=== PATIENT | male | born 1950 | race African-American/Black ===

== ENCOUNTER 2018-06-12 14:37 | Outpatient (CLI) | payer MEDICARE | END 2018-06-12 14:38 | disposition home or self-care (01) | LOC: BICMRI 14:37 | PROVIDERS: ATTEND Family Medicine | DX: M54.12 Radiculopathy, cervical region (principal); S30.851A Superficial foreign body of abdominal wall, initial encounter | CPT/HCPCS: 70210; 71046 ==

== ENCOUNTER 2018-11-29 09:38 | Outpatient (CLI) | payer MEDICARE ==
--- NOTE | 2018-11-29 11:58 | ULT ---
ABDOMEN ULTRASOUND: HISTORY: Upper abdominal pain for three weeks. FINDINGS: The visualized portions of the aorta and IVC are unremarkable. The pancreas is not well seen. The liver measures 13.9 cm in length with mildly increased hepatic echotexture. The spleen measures 8.8 cm in length. The gallbladder is normal. No pericholecystic fluid or cholelithiasis. Negative sonographic Pinon sign. The common bile duct measures 3 mm. The right kidney measures 10.8 x 4 x 4.6 cm, and the left kidney measures 11.5 x 5.9 x 5.5 cm, with a small amount of bilateral hydronephrosis. The urinary bladder is only mildly distended. IMPRESSION: Mild bilateral hydronephrosis, which may be physiologic, from bladder outlet obstruction. A follow-up CT examination may be beneficial, if clinically warranted, to evaluate for a distal obstr uctive process. POS: [facility]
== END 2018-11-29 09:39 | disposition home or self-care (01) ==
LOC: BICULT 09:38
PROVIDERS: ATTEND Internal Medicine Gastroenterology
DX: R10.10 Upper abdominal pain, unspecified (principal); N13.30 Unspecified hydronephrosis
CPT/HCPCS: 76700

== ENCOUNTER 2018-12-08 08:51 | Outpatient (CLI) | payer MEDICARE ==
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
[2018-12-08] MEDS ORDERED: Iopamidol 370 76% 100 ML VIAL ONE (12:43)
== END 2018-12-08 08:52 | disposition home or self-care (01) ==
LOC: CT 08:51 → MERGE 09:30
PROVIDERS: ATTEND Internal Medicine Gastroenterology
DX: N13.30 Unspecified hydronephrosis (principal); I70.8 Atherosclerosis of other arteries
CPT/HCPCS: 74177; 82565; Q9967

== ENCOUNTER 2018-12-27 08:56 | Outpatient (CLI) | payer MEDICARE ==
[2018-12-27] MEDS ORDERED: Gadobenate Dimeglumine 529 MG/1 ML (20ML VIAL) ONE (09:37)
[2018-12-27 10:06] LABS: Estimated GFR-MDRD - POC Greater than 90
--- NOTE | 2018-12-27 11:29 | MRI ---
[facility] lumbar spine noncontrast: DATE: 12/27/2018 HISTORY: Left leg numbness. Difficulty walking. Symptoms x6-8 months. COMPARISON: 06/01/2005 FINDINGS: Slightly heterogeneous T1 marrow signal intensity lumbar vertebra, similar to previous examination. V ertebral body height is maintained. No fracture. No significant STIR hyperintensity to suggest verteb ral body edema or ligamentous injury. T2 hyperintensity in the left right renal pelvis likely representing bilateral parapelvic cysts Symmetric signal intensity of the paraspinal muscles Conus medullaris terminates at the mid T12 level T12-L1:No significant central canal stenosis or neural foraminal narrowing L1-2:No significant central canal stenosis or neural foraminal narrowing L2-3:Mild loss of disc space height. Generalized disc bulge with a central/right subarticular minimal protrusion. There is T2 and STIR hyperintensity along the posterior margin of the disc, suggesting a small annular fissure. Mild central canal stenosis. Mild narrowing of the right subarticular zone wi thout obscuration of the traversing right L3 nerve root. Mild ligamentum flavum thickening and facet hypertrophy. Mild to moderate bilateral foraminal narrowing. L3-4:Mild loss of disc space height. No significant central canal stenosis. Moderate right and modera te to severe left foraminal narrowing. L4-5:Mild loss of disc space height. Broad-based disc bulge, ligament flavum thickening result in mil d central canal stenosis. Narrowing of both subarticular zones with mass effect, without obscuration of bilateral traversing L5 nerve roots. There is a T2 and STIR hyperintensity associated with the francesca tral aspect of the disc protrusion, compatible with annular fissure. Moderate to severe right and mod erate left foraminal narrowing L5-S1:Adequate hydration. Minimal central disc protrusion. No significant central canal stenosis. Mil d to moderate right and left foraminal narrowing. IMPRESSION: 1. Annular fissure at L2-L3 and L4-L5. 2. Multilevel significant neural foraminal narrowing as detailed above.
--- NOTE | 2018-12-27 12:40 | MRI ---
MRI CERVICAL SPINE WITH AND WITHOUT CONTRAST: FINDINGS: Spinal canal is diffusely small in caliber on a congenital basis due to developmentally short pedicle s. This is exacerbated by cervical spondylosis. Broad based disc/osteophytic bar complexes protrude i nto the anterior aspect of the spinal canal. Moderate size and large uncinate process osteophytes enc [place] upon the bilateral neural foramina. There is no intramedullary abnormal enhancement. C1-2: No additional findings. C2-3: No high grade central stenosis. Moderate to severe right neural foraminal stenosis. Mild to mod erate left neural foraminal stenosis. C3-4: Interval placement of anterior plate and screws since the prior study of 04-14-2006. The previou sly demonstrated left paracentral and left lateral disc herniation has been resected. Residual intram edullary signal abnormality remains at this level representing myelomalacia with focal cord atrophy a t this level. Moderate bilateral neural foraminal stenosis. C4-5: Severe central spinal canal stenosis with obliteration of CSF signal. Severe bilateral neural f oraminal stenosis. Interval worsening of the central stenosis since 2005. C5-6: Severe central spinal canal stenosis. Severe bilateral neural foraminal stenosis. C6-7: Very severe central spinal canal stenosis and very severe bilateral neural foraminal stenosis. C7-T1: Moderate central spinal canal stenosis and severe bilateral neural foraminal stenosis. IMPRESSION: 1. Cervical spondylosis exacerbating a developmentally small caliber spinal canal. Multilevel degener ative disc disease. 2. Status post anterior cervical discectomy and fusion at C3-4. 3. Focal myelomalacia at C3-4. 4. Multilevel severe central spinal canal stenosis and severe neural foraminal stenosis. POS: [facility]
== END 2018-12-27 08:57 | disposition home or self-care (01) ==
LOC: BICMRI 08:56
PROVIDERS: ATTEND Family Medicine
DX: M47.22 Other spondylosis with radiculopathy, cervical region (principal); R20.8 Other disturbances of skin sensation; M50.10 Cervical disc disorder with radiculopathy, unspecified cervical region; G95.89 Other specified diseases of spinal cord; M48.02 Spinal stenosis, cervical region; M48.061 Spinal stenosis, lumbar region without neurogenic claudication; M48.07 Spinal stenosis, lumbosacral region; Q05.7 Lumbar spina bifida without hydrocephalus; Z98.1 Arthrodesis status; Z98.890 Other specified postprocedural states
CPT/HCPCS: 72148; 72156; 82565; A9577

== ENCOUNTER 2019-01-22 08:06 | Outpatient (CLI) | payer MEDICARE ==
--- NOTE | 2019-01-22 08:42 | RAD ---
XR Cervical Spine 4 View Min History: [Cervical radiculopathy] Comparison: CT cervical spine 2012 Findings: The open-mouth odontoid view is normal. ACDF hardware at C3/C4 with osseous incorporation o f the bursectomy spacer. Moderate narrowing of the C4/C5 C5/C6 severe narrowing of the C6/C7 disc spaces. There is 2 mm anterolisthesis of C4 over C5 without significant translation with flexion or e xtension. Impression: Degenerative changes without significant translation with flexion or extension. Grade 1 f ixed C4 over C5 anterolisthesis.
--- NOTE | 2019-01-22 09:54 | RAD ---
LUMBAR SPINE 4 VIEWS: Date: 01/22/19 INDICATION: Lumbar pain. FINDINGS: Lumbar vertebra maintain normal height and alignment. Disc spaces are preserved. Degenerative osteoph ytes are seen from the lumbar vertebra and there is facet hypertrophy. No evidence of spondylolisthes is. No significant change in alignment with flexion or extension. IMPRESSION: Moderate degenerative changes of the lumbar spine noted. Alignment is maintained. POS: [facility]
--- NOTE | 2019-01-22 10:40 | CT ---
CT CERVICAL SPINE WITHOUT CONTRAST: Date: 01/22/19 Multiple axial tomograms obtained through cervical spine with multiplanar reconstruction. INDICATION: Cervical radiculopathy. Comparison made to CT cervical spine from February 2012. FINDINGS: Postoperative changes are again noted at C3-4. Anterior plate and screws and interbody implant at thi s level is seen with partial fusion. Degenerative changes below C4 again noted. There is loss of disc space at C4-5, C5-6, and C6-7, simil ar to the prior study. An anterolisthesis at C4-5 is more prominent today, measured at approximately 3.0 mm. Posterior spondylosis C5-6 and C6-7 again noted, slightly more prominent today than on the pr ior study. At C2-3, there is mild right foraminal encroachment due to facet and uncinate hypertrophy. At C3-4, bony fusion as noted above. Mild posterior spondylosis at C3-4 abuts the anterior cord. Mild foraminal narrowing bilaterally due to hypertrophic change. At C4-5, there is slight anterolisthesis as noted above. Posterior disc bulge and spondylosis is prom inent. Tiny gas pocket in the anterior spinal canal on the left is seen indicating vacuum phenomenon with disc protrusion into the spinal canal. These changes compress the cord at this level resulting i n moderate cervical canal stenosis and cord impingement. Bilateral foraminal stenosis due to hypertro phic change. There is a tiny gas pocket within the foramina on the left, probably secondary to disc d esiccation and vacuum phenomenon. At C5-6, posterior disc bulge and spondylosis impinge on and mildly flatten the cord. Bilateral thi inal stenosis due to significant bony hypertrophic change. At C6-7, disc bulge and spondylosis compress the cord resulting in moderate to severe cervical canal stenosis and cord impingement. Severe bilateral foraminal stenosis. At C7-T1, posterior disc bulge and spondylosis abut the anterior cord. Left foraminal encroachment du e to disc osteophyte complex. IMPRESSION: There are moderate to severe degenerative changes of the cervical spine with cervical canal and thi inal stenosis at multiple levels as described above. POS: [facility]
== END 2019-01-22 08:07 | disposition home or self-care (01) ==
LOC: TBSIIMAG 08:06
PROVIDERS: ATTEND Surgery
DX: M47.22 Other spondylosis with radiculopathy, cervical region (principal); M48.02 Spinal stenosis, cervical region; M47.26 Other spondylosis with radiculopathy, lumbar region; M43.12 Spondylolisthesis, cervical region
CPT/HCPCS: 72050; 72120; 72125

== ENCOUNTER 2019-04-24 09:58 | Outpatient (CLI) | payer MEDICARE ==
[2019-04-24 11:20] LABS: Hemoglobin 13.7 g/dL (14.0-18.0); Mean Corpuscular HGB CONC 32.9 g/dL (32.0-36.0); Mean Corpuscular Hemoglobin 27.3 pg (27.0-31.0); Mean Corpuscular Volume 83.1 fL (78.0-98.0); Mean Platelet Volume 10.7 fL (7.4-10.4); Platelet Count 152 thou/uL (130-400); RBC Distribution Width 11.9 % (11.5-14.5); Red Blood Cell (RBC) Count 5.03 mill/uL (4.70-6.10); White Blood Cell (WBC) Count 4.5 thou/uL (4.8-10.8)
[2019-04-24 11:32] LABS: INR-International Normal Ratio 1.1; Prothrombin Time 14.1 SEC (12.0-14.7)
[2019-04-24 11:41] LABS: Anion Gap 10 mmol/L (10-20); BUN (Urea Nitrogen) 13 mg/dL (8.4-25.7); Calc. Creatinine Clearance 0 mL/min (70-130); Calcium 9.1 mg/dL (7.8-10.44); Carbon Dioxide 26 mmol/L (23-31); Chloride 102 mmol/L (98-107); Estimated GFR-MDRD Greater than 90; Glucose 100 mg/dL (80-115); Sodium 134 mmol/L (136-145)
--- NOTE | 2019-04-25 13:20 | EKG ---
Test Reason : Blood Pressure : / mmHG Vent. Rate : 064 BPM Atrial Rate : 064 BPM P-R Int : 174 ms QRS Dur : 084 ms QT Int : 458 ms P-R-T Axes : 067 077 060 degrees QTc Int : 472 ms Normal sinus rhythm Minimal voltage criteria for LVH, may be normal variant Anterior infarct , age undetermined Abnormal ECG When compared with ECG of 22-FEB-2017 10:43, No significant change was found Confirmed by ALEX STATON (2) on 04/25/2019 1:20:12 PM Referred By: LACY Confirmed By:ALEX STATON
== END 2019-04-24 09:59 | disposition home or self-care (01) ==
LOC: LABBT 09:58
PROVIDERS: ATTEND Surgery
DX: Z01.818 Encounter for other preprocedural examination (principal); M47.12 Other spondylosis with myelopathy, cervical region
CPT/HCPCS: 80048; 85027; 85610; 85730; 87081; 93005; 93010

== ENCOUNTER 2019-04-24 10:30 | Inpatient (IN) | payer MEDICARE ==
[2019-04-24 10:11] VITALS: BMI 28.3
[2019-05-01] MEDS ORDERED: ceFAZolin Sodium (SDC) 2 GM/100 ML BAG ONE (06:19)
[2019-05-01] MEDS ORDERED: Bacitracin Zinc Ointment 30 gm TUBE ONE (06:49)
[2019-05-01] MEDS ORDERED: Sodium Chloride 0.9% 10 ML ONE ×2 (06:49→09:25)
[2019-05-01] MEDS ORDERED: Midazolam HCl 2 mg/2 ml Vial ONE (07:08)
[2019-05-01] MEDS ORDERED: Fentanyl 100 MCG/2 ML VIAL ONE ×3 (07:17→14:13)
[2019-05-01] MEDS ORDERED: Rocuronium Bromide 50 MG/5 ML VIAL ONE (10:34)
[2019-05-01] MEDS ORDERED: Albumin 5% 500 ML ONE (10:50)
[2019-05-01] MEDS ORDERED: Phenylephrine HCL 10 MG/ML VIAL ONE (11:19)
[2019-05-01] MEDS ORDERED: Dexamethasone 20 MG/5 ML VIAL ONE (12:10)
[2019-05-01] MEDS ORDERED: Glycopyrrolate 0.2 MG/ML 5 ML SYRINGE ONE (12:10)
[2019-05-01] MEDS ORDERED: PROPOFOL 200 MG/20 ML VIAL ONE (12:10)
[2019-05-01] MEDS ORDERED: Rocuronium Bromide 10 MG/ML (10ML VIAL) ONE (12:10)
[2019-05-01] MEDS ORDERED: PHENYLEPHRINE-NS 100 MCG/ML 10 ML SYRINGE ONE (12:10)
[2019-05-01] MEDS ORDERED: Lidocaine 1% PF 5 ML VIAL ONE (12:10)
[2019-05-01] MEDS ORDERED: ePHEDrine 50 MG/ML VIAL ONE (12:10)
[2019-05-01] MEDS ORDERED: Ondansetron PF 4 MG/2 ML Vial IVP PRN (13:17)
[2019-05-01] MEDS ORDERED: Milk Of Magnesia 30 ML UDCUP PO PRN (13:17)
[2019-05-01] MEDS ORDERED: Mag-Al 1200 mg/1200 mg/30 ML UDCUP PO PRN (13:17)
[2019-05-01] MEDS ORDERED: Bisacodyl 10 MG SUPP PR PRN (13:17)
[2019-05-01] MEDS ORDERED: traMADol HCl 50 MG TAB PO PRN (13:17)
[2019-05-01] MEDS ORDERED: Fleet Enema 133 ML BOT PR PRN (13:17)
[2019-05-01] MEDS ORDERED: Acetaminophen 325 MG TAB PO PRN (13:17)
[2019-05-01] MEDS ORDERED: Promethazine HCl 25 MG/ML VIAL IM PRN (13:24)
[2019-05-01] MEDS ORDERED: Promethazine HCl 25 MG/ML VIAL SLOW IVP PRN (13:24)
[2019-05-01] MEDS ORDERED: PACU-Morphine 4MG/ML VIAL SLOW IVP PRN (13:24)
[2019-05-01] MEDS ORDERED: HYDROmorphone 2 MG/ML VIAL SLOW IVP PRN (13:24)
[2019-05-01] MEDS ORDERED: Ondansetron HCl/PF 4 MG/2 ML Vial IVP PRN (13:24)
[2019-05-01] MEDS ORDERED: Labetalol HCl 100 MG/20 ML VIAL SLOW IVP PRN (13:25)
[2019-05-01] MEDS ORDERED: HYDROmorphone 2 MG/ML VIAL ONE (13:25)
[2019-05-01 14:07] LABS: Hemoglobin 11.2 g/dL (14.0-18.0)
[2019-05-01] MEDS ORDERED: hydrALAZINE 20 MG/ML VIAL ONE (14:43)
--- NOTE | 2019-05-01 15:47 | OP ---
DATE OF PROCEDURE: 05/01/2019 LOCATION: OR 11. WOUND CLASSIFICATION: Type 1 wound. HORTICULTURE SUPERINTENDENT: Jovanni Gutiérrez PA-C PREPROCEDURE DIAGNOSES: Multilevel cervical stenosis with myelopathy and prior C3-C4 anterior cervical discectomy and fusion. POSTPROCEDURE DIAGNOSES: Multilevel cervical stenosis with myelopathy and prior C3-C4 anterior cervical discectomy and fusion. PROCEDURES PERFORMED: 1. Anterior C4, C5, C6, and C7 diskectomies for decompression of spinal cord nerve roots, worship of cervical lordosis with placement of interbody spacers for arthrodesis packed with local bone autograft and allograft C4-C5, C5-C6, and C6-C7. 2. Use of operative microscope for microdissection. 3. Cervical laminectomy C4, C5, C6, and C7. 4. Screw elmer fixations posteriorly, C4, C5, C6, and C7 with arthrodesis C4-C5, C5-C6, C6-C7. Local bone autograft obtained with the same incision allograft. DESCRIPTION OF PROCEDURE: After informed consent was obtained from the patient, the patient was brought to the OR. Proper patient, pause, and identification were carried out. He was placed under excellent general endotracheal anesthesia, right anterior oblique derek was made. This region was sterilely cleansed, prepared, and draped. Proper patient, pause, and identification were carried out. The wound was then opened with combination of sharp, monopolar, and blunt dissection. We proceeded lateral to the larynx, pharynx, tracheoesophageal bundle, and medial to the right carotid sheath. We identified the longus colli muscles and these were swept laterally. I determined that we did not need to remove the C3-C4 plate or assess its fusion with measurements, I was able to get a good plate fixation at C4 and simply worked below his prior C3-C4 construct. Localization film confirmed our area of interest. We then performed distraction at C4-C5 and a diskectomy was performed with the use of the operative microscope for microdissection. I was pleased with our decompression and a placement of interbody spacer packed with graft for arthrodesis occurred. We then did the same thing at C5-C6 and C6-C7 diskectomies and decompressions and placement of interbody spacers at each of those segments. Plate and screw fixation then occurred with final tightening from C4 all the way down to C7. The wound was copiously irrigated. Hemostasis was maximized. The wound was closed in anatomic layers over drain. We then flipped the patient over after placement of the Casey Kavon butcher head and secured his cervical spine in neutral position. We identified the posterior C4 through C7 segments. A linear derek was made posteriorly. This region was sterilely cleansed, prepared, and draped. Proper patient, pause, and identification were carried out. The wound was then opened in a combination of sharp, monopolar, and blunt dissection. The C4, C5, C6, and C7 dorsal spines and lamina were exposed. Localization film confirmed area of interest. Then, performed C4 through C7 laminectomies and lateral mass screws were then placed using standard anatomic technique. Rods were placed. Final tightening occurred. Copious irrigation occurred throughout. The lateral masses were also decorticated to initiate arthrodesis. One local bone autograft and allograft were placed posterolateral in the lateral masses. Hemostasis was maximized throughout. The wound was closed in anatomic layers following sprinkling of vancomycin powder. The patient then emerged from anesthesia. Job ID: [id number]
[2019-05-01] MEDS: Sodium Chloride 0.9% 1,000 ML IV SCH (18:39)
[2019-05-01] MEDS: CEFAZOLIN 2 GM, IV Admixture Fee-Chemo 1 UNITS in Sodium Chloride 0.9% 100 ML IVPB SCH ×2 (18:39→20:33)
[2019-05-01] MEDS: tiZANidine HCl 4 MG TAB PO PRN (19:40)
[2019-05-01] MEDS: HYDROcodone/Acetaminophen 7.5/325 mg Tablet PO PRN (19:41)
[2019-05-01] MEDS: Morphine 2 MG/ML SYRINGE SLOW IVP PRN ×2 (20:32→22:16)
[2019-05-01] MEDS: hydrALAZINE 20 MG/ML VIAL SLOW IVP PRN (22:12)
[2019-05-01] MEDS: Acetaminophen/Codeine 30-300mg Tablet PO PRN (22:15)
[2019-05-02] MEDS: Morphine 2 MG/ML SYRINGE SLOW IVP PRN (02:36)
[2019-05-02] MEDS: HYDROcodone/Acetaminophen 7.5/325 mg Tablet PO PRN (02:38)
[2019-05-02] MEDS: Sodium Chloride 0.9% 1,000 ML IV SCH ×2 (03:26→06:01)
[2019-05-02] MEDS: CEFAZOLIN 2 GM, IV Admixture Fee-Chemo 1 UNITS in Sodium Chloride 0.9% 100 ML IVPB SCH ×3 (06:00→22:10)
[2019-05-02] MEDS: tiZANidine HCl 4 MG TAB PO PRN ×3 (06:00→20:16)
[2019-05-02] MEDS: Acetaminophen/Codeine 30-300mg Tablet PO PRN ×3 (08:26→20:16)
[2019-05-02] MEDS: Tamsulosin HCl 0.4 MG CAP PO SCH (08:26)
[2019-05-02] MEDS ORDERED: Acetaminophen 1,000 MG in Premix Bag 1 BAG IVPB SCH (08:45)
[2019-05-02 08:51] LABS: #Lymphocytes 2.4 thou/uL (1.20-3.40); #Monocytes 1.4 thou/uL (0.11-0.59); #Neutrophils 7.6 thou/uL (1.40-6.50); %Basophils 0.1 % (0.0-1.0); %Eosinophils 0.2 % (0.0-10.0); %Monocytes 12.2 % (0.0-10.0); %Neutrophils 66.5 % (42.0-75.0); Hemoglobin 10.1 g/dL (14.0-18.0); Mean Corpuscular HGB CONC 32.4 g/dL (32.0-36.0); Mean Corpuscular Hemoglobin 27.3 pg (27.0-31.0); Mean Corpuscular Volume 84.3 fL (78.0-98.0); Mean Platelet Volume 10.2 fL (7.4-10.4); Platelet Count 137 thou/uL (130-400); Red Blood Cell (RBC) Count 3.68 mill/uL (4.70-6.10); White Blood Cell (WBC) Count 11.4 thou/uL (4.8-10.8)
[2019-05-02 09:12] LABS: Anion Gap 11 mmol/L (10-20); BUN (Urea Nitrogen) 10 mg/dL (8.4-25.7); Calc. Creatinine Clearance 88 mL/min (70-130); Calcium 8.6 mg/dL (7.8-10.44); Carbon Dioxide 25 mmol/L (23-31); Chloride 106 mmol/L (98-107); Estimated GFR-MDRD Greater than 90; Glucose 113 mg/dL (83-110); Potassium 3.8 mmol/L (3.5-5.1); Sodium 138 mmol/L (136-145)
[2019-05-02] MEDS ORDERED: Dexamethasone 4 mg/ml Vial SLOW IVP SCH (09:45)
[2019-05-02] MEDS: Pantoprazole 40 MG VIAL IVP SCH (10:22)
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
[2019-05-02] MEDS: hydrALAZINE 20 MG/ML VIAL SLOW IVP PRN (20:23)
[2019-05-03] MEDS: Acetaminophen/Codeine 30-300mg Tablet PO PRN ×4 (01:04→15:16)
[2019-05-03] MEDS: Sodium Chloride 0.9% 1,000 ML IV SCH ×2 (04:45→16:21)
[2019-05-03] MEDS: CEFAZOLIN 2 GM, IV Admixture Fee-Chemo 1 UNITS in Sodium Chloride 0.9% 100 ML IVPB SCH ×3 (05:11→21:31)
[2019-05-03] MEDS: tiZANidine HCl 4 MG TAB PO PRN ×2 (05:11→15:16)
[2019-05-03] MEDS: Pantoprazole 40 MG VIAL IVP SCH (09:12)
[2019-05-03] MEDS: Tamsulosin HCl 0.4 MG CAP PO SCH (09:12)
--- NOTE | 2019-05-03 14:30 | PRG ---
DATE OF SERVICE: 05/03/2019 SUBJECTIVE: The patient is doing well this morning. Presently wearing his neck brace. He states his ambulation has improved somewhat. OBJECTIVE: VITAL SIGNS: Temperature 98.4, pulse 73, respirations 16, pulse ox 99, and blood pressure 117/72. HEART: Regular rate and rhythm. LUNGS: Clear. ABDOMEN: Soft. LABORATORY DATA: None. ASSESSMENT: 1. Postop day #2, status post diskectomies and laminectomies, C4 through C7. 2. Benign prostatic hyperplasia. PLAN: 1. The patient is doing well postop. 2. We will continue to follow. 3. Plan to probable transfer to rehab in the next 1 to 2 days. Job ID: [id number]
--- NOTE | 2019-05-03 17:11 | PRG ---
DATE OF SERVICE: 05/03/2019 This is Jovanni Gutiérrez PA-C dictating a report for Tyson Ledezma MD. SUBJECTIVE: Mr. Tinsley is postoperative day #2, having undergone anterior and posterior cervical fusion. The patient overall is doing well today. He was actually up walking in the halls yesterday with therapy. He has continued difficulty with swallowing, although he states this is improved after getting Decadron yesterday. He does have significant posterior neck pain. He has trace weakness into the left arm, although again this appears improved compared to yesterday. Otherwise, he has good strength in all the other extremities. His drain output was 10 overnight and there was some leakage around the drain exit site. I did examine the Steri-Strips as well as the drain output site and redressed the wound. I would like the drain to remain in at least today, but likely we will take it out tomorrow. He will remain on Ancef. We are waiting for discharge to inpatient rehab, but otherwise the patient is progressing well and he and his family are happy with this outcome. Job ID: [id number]
[2019-05-03] MEDS: HYDROcodone/Acetaminophen 7.5/325 mg Tablet PO PRN (21:30)
[2019-05-04] MEDS: tiZANidine HCl 4 MG TAB PO PRN ×3 (01:10→17:19)
[2019-05-04] MEDS: CEFAZOLIN 2 GM, IV Admixture Fee-Chemo 1 UNITS in Sodium Chloride 0.9% 100 ML IVPB SCH ×2 (05:52→14:12)
[2019-05-04] MEDS: Tamsulosin HCl 0.4 MG CAP PO SCH (08:29)
[2019-05-04] MEDS: Pantoprazole 40 MG VIAL IVP SCH (08:30)
[2019-05-04] MEDS: Sodium Chloride 0.9% 1,000 ML IV SCH ×2 (08:30→21:21)
[2019-05-04] MEDS: Acetaminophen/Codeine 30-300mg Tablet PO PRN ×3 (08:40→17:19)
[2019-05-04] MEDS ORDERED: Dexamethasone 10 MG/ML VIAL SLOW IVP SCH (10:30)
--- NOTE | 2019-05-04 13:29 | PRG ---
DATE OF SERVICE: 05/04/2019 SUBJECTIVE: The patient is doing well. He is postop day #3, status post diskectomies and laminectomies, C4 through C7. He did ambulate yesterday. He states he is feeling better today. He has increased his activity. He is uncomfortable, however. OBJECTIVE: VITAL SIGNS: Temperature 98.7, T-max 100.0; pulse 79; respirations 16; pulse ox 100%; blood pressure 120/71. HEART: Regular rate and rhythm. LUNGS: Clear. ABDOMEN: Soft, nontender. EXTREMITIES: With no edema. LABORATORY DATA: None. ASSESSMENT: 1. Postoperative day #3, status post diskectomies and laminectomies, C4 through C7. 2. Benign prostatic hypertrophy. 3. Low-grade fever, possibly consistent with atelectasis. However, the patient's activity has continued to improve. He also states that his ambulation has markedly improved. He is walking much better. He still has a slight drag. PLAN: 1. Plan to transfer to [facility] today. 2. Follow up as an outpatient. 3. Hopefully with increase activity, his atelectasis will clear. Job ID: [id number]
--- NOTE | 2019-05-04 17:00 | PRG ---
DATE OF SERVICE: 05/04/2019 Mr. Bae is postoperative day 3 following anterior-posterior cervical decompression and fusion for deformity and circumferential stenosis and spinal cord compression. He states he is significantly better and is able to move his upper extremities above his shoulders and move his legs. He is ambulating. He has mild quadriparesis compared to before surgery, he had moderate quadriparesis and had difficulty walking safely even with a straight cane at times. His wounds are healing well. We have removed his anterior OSCAR drain this morning, and we will give him another 6 mg dose of IV Decadron as he has a history even after his prior dysphagia and he states while he was swallowing putting and other sauce such as chicken broth and that he has certainly improved compared to right after surgery. He feels that this has still not surprisingly delayed in his ability to swallow unencumbered. We have placed the patient in rehab consultation. We will continue to follow and we will continue to encourage him to mobilize and await inpatient rehabilitation admission. Job ID: [id number]
[2019-05-04] MEDS: HYDROcodone/Acetaminophen 7.5/325 mg Tablet PO PRN (21:00)
[2019-05-05] MEDS: Tamsulosin HCl 0.4 MG CAP PO SCH (09:16)
[2019-05-05] MEDS: Pantoprazole 40 MG VIAL IVP SCH (09:16)
[2019-05-05] MEDS: tiZANidine HCl 4 MG TAB PO PRN ×3 (09:16→20:12)
[2019-05-05] MEDS: Sodium Chloride 0.9% 1,000 ML IV SCH ×2 (09:16→19:50)
[2019-05-05] MEDS: Acetaminophen/Codeine 30-300mg Tablet PO PRN ×3 (09:17→20:12)
--- NOTE | 2019-05-05 09:46 | PRG ---
DATE OF SERVICE: SUBJECTIVE: The patient is a 69-year-old male, postoperative day #3, status post C3-C4 anterior and posterior decompression and fusion. Following surgery, he was transitioned to the Med/Surg floor, where his pain has been well controlled with p.o. medications, he is tolerating a regular diet, and he is voiding appropriately. He has been working with Physical Therapy and considering his cervical myelopathy and unsteady gait, there are plans for inpatient rehabilitation. OBJECTIVE: On exam this morning, he is awake, alert, in no acute distress. He has free active range of motion of all extremities. No significant weakness while in the bed. His incision is dry and intact. PLAN: We will continue to mobilize during his inpatient stay. Working for his inpatient rehabilitation. I will check with Case Management to see where we are in the process. The patient is ready for rehab at any point. Job ID: [id number]
--- NOTE | 2019-05-05 11:08 | PRG ---
DATE OF SERVICE: 05/05/2019 SUBJECTIVE: The patient is doing well. He is presently working with Physical Therapy. The patient is pleased with his progress. Still needs more work to be done. OBJECTIVE: VITAL SIGNS: Temperature 98.3, pulse 71, respirations 16, pulse ox 96%, and blood pressure 160/92. HEART: Regular rate and rhythm. LUNGS: Clear. ABDOMEN: Soft. EXTREMITIES: No edema. ASSESSMENT: 1. Postoperative day #4, status post diskectomy and laminectomy C4 through C7. 2. Benign prostatic hyperplasia. 3. Fever, resolved. 4. Blood pressure slightly elevated. PLAN: 1. Continue with PT. 2. Probable transfer to inpatient rehab on Tuesday. 3. We will add an antihypertensive. The patient's blood pressures have been running slightly high. Job ID: [id number]
[2019-05-06] MEDS: Acetaminophen/Codeine 30-300mg Tablet PO PRN (06:01)
[2019-05-06] MEDS: tiZANidine HCl 4 MG TAB PO PRN ×2 (06:01→15:37)
[2019-05-06] MEDS: Losartan 25 MG TAB PO SCH (08:16)
[2019-05-06] MEDS: Pantoprazole 40 MG VIAL IVP SCH (08:17)
[2019-05-06] MEDS: Tamsulosin HCl 0.4 MG CAP PO SCH (08:17)
--- NOTE | 2019-05-06 09:33 | PRG ---
DATE OF SERVICE: 05/06/2019 SUBJECTIVE: The patient is a 69-year-old male, status post 360 neck. He has been monitored closely on the floor and working with Physical Therapy. He is quite frustrated this morning by the length of his stay and is ready for inpatient rehabilitation. Unfortunately, we are currently awaiting on insurance authorization. I anticipate that he may be able to go in 1 to 2 days. He is also quite frustrated with his time he has been able to get out of bed and mobilize here during his inpatient stay during the hospital as well as his diet restrictions. OBJECTIVE: On exam this morning, he is awake, alert, in no acute distress. He has free active range of motion of all extremities. No focal motor weakness. He is quite unsteady on his feet with his gait. ASSESSMENT AND PLAN: We will plan to continue to mobilize appropriately with Physical Therapy and the nurses will also attempt to get him up frequently out of bed and ambulate with assistance. I have changed his diet to a regular diet. I will check with Case Management. Anticipate inpatient rehabilitation tomorrow. Job ID: [id number]
--- NOTE | 2019-05-06 13:04 | PRG ---
DATE OF SERVICE: 05/06/2019 Mr. Bae is doing reasonably well following his anterior and posterior decompression and fusion for severe cervical myelopathy. He was ambulatory this morning. His pain seems well controlled considering. We are awaiting a rehab disposition plan and I have not heard much over the weekend, hopefully tomorrow. I discussed at length with the patient and his family. Job ID: [id number]
[2019-05-06] MEDS: Sodium Chloride 0.9% 1,000 ML IV SCH (13:30)
[2019-05-06] MEDS: HYDROcodone/Acetaminophen 7.5/325 mg Tablet PO PRN (15:37)
[2019-05-07] MEDS: Sodium Chloride 0.9% 1,000 ML IV SCH ×2 (02:55→15:48)
[2019-05-07] MEDS: Tamsulosin HCl 0.4 MG CAP PO SCH (09:24)
[2019-05-07] MEDS: Losartan 25 MG TAB PO SCH (09:24)
[2019-05-07] MEDS: Acetaminophen/Codeine 30-300mg Tablet PO PRN ×3 (09:26→20:16)
--- NOTE | 2019-05-07 09:43 | PRG ---
DATE OF SERVICE: 05/07/2019 This is Jovanni Gutiérrez PA-C dictating a report for Tyson Ledezma MD. Postoperative recheck. Mr. Bae is postoperative day #6 having undergone anterior cervical diskectomy and fusion as well as posterior laminectomies and fusion. The patient looks very well today. He is sitting up in a chair with his [place] in his home pajamas and slippers. He has a cane that he has been using. He states he feels more steady on his feet now compared to preoperatively. Although he states pain orona, he has posterior neck pain. He states every day; however, he is improving. He appears less dysphonic today and he is no longer hoarse. He is tolerating pills and a full liquid diet. He has excellent strength in all the extremities, perhaps with maybe some trace weakness into the left arm and leg. This is significantly improved even compared to a last weeks exam. Our main issue now is disposition. We are waiting on insurance approval in regard to inpatient rehab. We should get an answer today. Should they deny this, we will proceed with home with home health physical therapy and I have discussed this at great length with the patient and his family and they are agreeable to this. In fact that we will follow up in this regard, but hopefully we will have an answer in regard to his disposition today. Please call with any change in the patient's neurologic status. Job ID: [id number]
--- NOTE | 2019-05-07 12:06 | PRG ---
DATE OF SERVICE: 05/07/2019 SUBJECTIVE: The patient continues to improve slowly. He is ambulating some. His neck is feeling more comfortable, but still in moderate pain. OBJECTIVE: VITAL SIGNS: Temperature 98.3, pulse 65, blood pressure 169/80, 134/84, 154/83. HEART: Regular rate and rhythm. LUNGS: Clear. ABDOMEN: Soft. EXTREMITIES: With no edema. LABORATORY DATA: None. ASSESSMENT: 1. Postoperative day #6, status post diskectomy and laminectomy. 2. Benign prostatic hypertrophy. 3. Fever, resolved. 4. Hypertension. PLAN: 1. He was started on losartan 50 daily. Blood pressure continues to fluctuate. We will continue to follow. If blood pressure remains slightly elevated, we will increase losartan from 50 to 100. At this time, we will just continue to follow. 2. Hopefully, can transfer to rehab today or tomorrow. Job ID: [id number]
[2019-05-07] MEDS: methylPREDNISolone 4 mg Tablet PO SCH ×2 (17:02→20:17)
[2019-05-08] MEDS: Sodium Chloride 0.9% 1,000 ML IV SCH (05:07)
[2019-05-08] MEDS ORDERED: methylPREDNISolone 4 mg Tablet PO SCH ×2 (08:00→21:00)
[2019-05-08] MEDS: Acetaminophen/Codeine 30-300mg Tablet PO PRN (08:00)
[2019-05-08] MEDS: Losartan 25 MG TAB PO SCH (08:01)
[2019-05-08] MEDS: Tamsulosin HCl 0.4 MG CAP PO SCH (08:01)
--- NOTE | 2019-05-08 08:28 | PRG ---
DATE OF SERVICE: 05/08/2019 SUBJECTIVE: The patient continues to progress. His date definitely has improved since before surgery. OBJECTIVE: VITAL SIGNS: Temperature 98.3, pulse 67, respirations 16, pulse ox 98%, and blood pressure 140/72. HEART: Regular rate and rhythm. LUNGS: Clear. ABDOMEN: Soft. LABORATORY DATA: None. ASSESSMENT: 1. Postoperative day #7, status post cystectomy and laminectomy, C3 through C7. 2. Benign prostatic hyperplasia. 3. Hypertension. PLAN: 1. Continue losartan 50 daily. 2. Once discharged from rehab, the patient will follow up with me in the office. 3. The nurse's report that the patient has been approved for transfer to rehab today. Job ID: [id number]
[2019-05-08 10:44] VITALS: BP 159/99; TEMP 97.8
--- NOTE | 2019-05-08 18:26 | DIS ---
DATE OF ADMISSION: 05/01/2019 DATE OF DISCHARGE: 05/08/2019 DISCHARGE DIAGNOSES: 1. Cervical spondylosis with myelopathy. 2. Ataxia. 3. Benign prostatic hyperplasia. HOSPITAL COURSE: Mr. Bae was admitted to undergo anterior approach for posterior cervical diskectomy, laminectomies and fusion. The patient tolerated the procedure well and a drain was placed postoperatively. This first removed postoperative day #3. The patient did have some swallowing difficulties and was placed on a few doses of IV steroids as well as a Medrol Dosepak. Probably the patient, who was tolerating a full diet and swallowing pills at the time of discharge. At the time of discharge, the patient was doing well in regard to his pain other than some posterior neck pain, which is more of discomfort. He stated that he felt more steady on his feet and was requiring a cane for gait stability. Otherwise, he really had good strength in all the extremities. Significant improvement compared to his preoperative exam. The patient will be discharged to inpatient rehab with the understanding that he has appropriate outpatient followups were provided and he and his were pleased with his outcome postoperatively with the understanding to call the office with questions or concerns at any time. Job ID: [id number]
[2019-05-09] MEDS ORDERED: methylPREDNISolone 4 mg Tablet PO SCH (08:00)
[2019-05-10] MEDS ORDERED: methylPREDNISolone 4 mg Tablet PO SCH (08:00)
[2019-05-11] MEDS ORDERED: methylPREDNISolone 4 mg Tablet PO SCH (08:00)
[2019-05-12] MEDS ORDERED: methylPREDNISolone 4 mg Tablet PO SCH (08:00)
== END 2019-05-08 12:17 | DRG 453 ==
LOC: SURG A 05-01 05:33 → SURG B 05-01 17:43
PROVIDERS: ADMIT Surgery; ATTEND Surgery
PROC: 0RG20A0 Fusion of 2 or more Cervical Vertebral Joints with Interbody Fusion Device, Anterior Approach, Anterior Column, Open Approach (ICD-10-PCS; principal; 2019-05-01)
PROC: 0RG2071 Fusion of 2 or more Cervical Vertebral Joints with Autologous Tissue Substitute, Posterior Approach, Posterior Column, Open Approach (ICD-10-PCS; 2019-05-01)
PROC: 0RB30ZZ Excision of Cervical Vertebral Disc, Open Approach (ICD-10-PCS; 2019-05-01)
PROC: 4A11X4G Monitoring of Peripheral Nervous Electrical Activity, Intraoperative, External Approach (ICD-10-PCS; 2019-05-01)
DX: M48.02 Spinal stenosis, cervical region (principal); G82.50 Quadriplegia, unspecified; M47.12 Other spondylosis with myelopathy, cervical region; J98.11 Atelectasis; R27.0 Ataxia, unspecified; N40.0 Benign prostatic hyperplasia without lower urinary tract symptoms; R50.9 Fever, unspecified; R13.10 Dysphagia, unspecified; I10 Essential (primary) hypertension; Z87.891 Personal history of nicotine dependence
CPT/HCPCS: 36415; 76000; 80048; 85014; 85018; 85025; C1713; C1776; C9113; J0131; J0360; J0690; J1100; J1170; J2001; J2250; J2270; J2370; J2704; J3010; J3370; J3490; J7509; P9045

== ENCOUNTER 2019-06-18 09:09 | Outpatient (CLI) | payer MEDICARE ==
--- NOTE | 2019-06-18 10:09 | RAD ---
CERVICAL SPINE 3 VIEWS: Date: 06/18/19 HISTORY: M50.30 cervical disc degeneration, postop surgery. FINDINGS: Anterior cervical fusion changes are noted at C3-C4, as well as C4, C5, C6, and C7, as well as dorsal facet fixation rods and screws. No significant malalignment. No abnormal prevertebral soft tissue sw elling. The odontoid and C1 are mostly obscured on the lateral view. IMPRESSION: Extensive postoperative changes. No significant malalignment. POS: OFF
== END 2019-06-18 09:10 | disposition home or self-care (01) ==
LOC: TBSIIMAG 09:09
PROVIDERS: ATTEND Surgery
DX: M50.30 Other cervical disc degeneration, unspecified cervical region (principal); Z98.890 Other specified postprocedural states
CPT/HCPCS: 72040

== ENCOUNTER 2020-04-04 05:33 | Outpatient (CLI) | payer MEDICARE, OTHER ==
[2020-04-04 16:41] LABS: Hemoglobin 14.1 g/dL (14.0-18.0)
[2020-04-04 17:27] LABS: Anion Gap 13 mmol/L (10-20); BUN (Urea Nitrogen) 11 mg/dL (8.4-25.7); Calc. Creatinine Clearance 0 mL/min (70-130); Carbon Dioxide 24 mmol/L (23-31); Chloride 104 mmol/L (98-107); Estimated GFR-MDRD Greater than 90; Glucose 99 mg/dL (83-110); Potassium 4.3 mmol/L (3.5-5.1); Sodium 137 mmol/L (136-145)
[2020-04-05 12:37] LABS: SARS-CoV-2 MS2 Positive; SARS-CoV-2 N Gene Negative; SARS-CoV-2 S Gene Negative; SARS-CoV-2 orf1ab Negative
== END 2020-04-04 05:34 | disposition home or self-care (01) ==
LOC: LABBT 05:33
PROVIDERS: ATTEND Student in an Organized Health Care Education/Training Program
DX: Z01.818 Encounter for other preprocedural examination (principal); Z11.59 Encounter for screening for other viral diseases; H72.90 Unspecified perforation of tympanic membrane, unspecified ear; H71.91 Unspecified cholesteatoma, right ear; H69.80 Other specified disorders of Eustachian tube, unspecified ear
CPT/HCPCS: 80048; 85014; 85018; 93005; U0003; 87635; 93010

== ENCOUNTER 2020-04-08 06:00 | Day surgery (SDC) | payer MEDICARE ==
[2020-04-03 13:11] VITALS: BMI 28.3
[2020-04-08] MEDS ORDERED: Ciprofloxacin 0.2% Otic 1 DROP CON ONE (07:50)
[2020-04-08] MEDS ORDERED: EPINEPHrine 1 MG/ML AMP ONE (07:50)
[2020-04-08] MEDS ORDERED: Lidocaine 1% w/Epinephrine 1:100K 20 ML VIAL ONE (07:50)
[2020-04-08] MEDS ORDERED: Bacitracin Zinc Ointment 30 gm TUBE ONE (07:50)
[2020-04-08] MEDS ORDERED: Fentanyl 100 MCG/2 ML VIAL ONE ×2 (08:38→12:09)
[2020-04-08] MEDS ORDERED: Midazolam HCl 2 mg/2 ml Vial ONE (08:39)
[2020-04-08] MEDS ORDERED: Labetalol HCl 100 MG/20 ML VIAL ONE (11:21)
[2020-04-08] MEDS ORDERED: PROPOFOL 200 MG/20 ML VIAL ONE (13:04)
[2020-04-08] MEDS ORDERED: Glycopyrrolate 0.2 MG/ML 5 ML SYRINGE ONE (13:04)
[2020-04-08] MEDS ORDERED: PHENYLEPHRINE-NS 100 MCG/ML 10 ML SYRINGE ONE (13:04)
[2020-04-08] MEDS ORDERED: EPHEDRINE 25 MG/5 ML SYRINGE ONE (13:04)
[2020-04-08] MEDS ORDERED: Ondansetron PF 4 MG/2 ML Vial ONE (13:04)
[2020-04-08] MEDS ORDERED: Rocuronium Bromide 10 MG/ML (10ML VIAL) ONE (13:04)
[2020-04-08] MEDS ORDERED: Lidocaine 1% PF 5 ML VIAL ONE (13:04)
[2020-04-08] MEDS ORDERED: Dexamethasone 20 MG/5 ML VIAL ONE (13:04)
--- NOTE | 2020-04-09 12:54 | OP ---
DATE OF PROCEDURE: 04/08/2020 PREOPERATIVE DIAGNOSES: Right tympanic membrane perforation, eustachian tube dysfunction, recurrent acute otitis media, and hearing loss. POSTOPERATIVE DIAGNOSES: Right tympanic membrane perforation, eustachian tube dysfunction, recurrent acute otitis media, and hearing loss. PROCEDURES PERFORMED: Right underlay tympanoplasty with cartilage grafting and fascia grafting. PERMIT: A 69-year-old male patient having discussion about surgical risks and benefits including improved hearing, decreased chance of infection, given the procedure, the patient was willing to undergo the surgery. The patient was advised of the risks as well, which include possible persistent perforation, changes in taste, changes in hearing, damage to the ear or ear canal, possible swelling, infection, and pain. INDICATIONS FOR PROCEDURE: A 69-year-old male patient presenting with persistent right TM perforation, history of eustachian tube dysfunction, and recurrent acute otitis media and hearing loss. The patient is significantly affected by ear drainage and recurrent infection and is asking to see if we could close his ear drum to help improve hearing as well as potentially reduce the risk of infection, and he is now taken to the operative room for operative intervention. FINDINGS: Right anterior TM perforation roughly 35% to 40%. COMPLICATIONS: None. DESCRIPTION OF PROCEDURE: The patient was taken back to the operative room and laid supine on the operative table, and general endotracheal anesthesia was induced, and the patient was rotated 180 degrees. The microscope and other instruments were positioned, and the patient was prepped and then draped in a sterile fashion. 1 % lidocaine with 1:100,000 epinephrine was injected into the ear canal and into the postauricular area as well as to the tragal cartilage area roughly 5 mL in total , and the operative microscope was brought in, and the patient's ear canal was cleared of cerumen, and the TM perforation was examined, and the TM perforation was rimmed after irrigation with iodine and then saline solution. Next, operative microscope was removed, and a postauricular incision was used with a 15 blade and dissection down into the subcutaneous tissue and then finding the false temporalis fascia, a Weitlaner was used to retract the skin edges, and then the fascia was identified , and a 15 blade was used to cut through the fascia, and then tenotomy scissors and Adsons were used to dissect a fascia graft free that was roughly 2 x 2 cm in size. The fascia graft was placed with a 4 x 4 on the press and then opened and allowed to dry. Next, the incision was then closed in layers with 4-0 Vicryl deep sutures as well as a 5-0 fast superficial running suture. Next, attention was turned to a separate incision to harvest tragal cartilage for the repair to help support his eardrum with a history of eustachian tube dysfunction and atrophic TM. The posterior and medial aspects of the tragus skin was then incised, the skin with a 15 blade scalpel down to the cartilage, and then, the cartilage was transected leaving a small tab of cartilage on the tragus to prevent any cosmetic change to the outward appearance of the tragus, and then an iris scissors was then used to dissect and free the cartilage, and a roughly 1 cm size cartilage was then removed and then carved about 1/3 thickness leaving perichondrial tissue on one side. Next, the tragus was then irrigated, the wound, and then closed and the separate incision was then closed. The operative microscope and a speculum hoyt were then brought in, and the ear canal was examined, and a round knife and a 3 suction were then used to make a tympanomeatal flap cutting superiorly at the aspect of the head of the malleus down leaving a longer flap on the posterior side and then extending to the anterior part of the ear canal, and the tympanomeatal flap was then elevated using the round knife and a suction. When I approached the anulus and found the fibrous ring of the anulus, a Ferrell needle was then used to elevated the small portion carefully at the anterior-inferior aspect in order to protect the middle ear structures. Next, a gimmick was then used to elevate the tympanomeatal flap and the anulus free both anteriorly and inferiorly and then posteriorly superiorly up to the malleolar head. At this point, the chorda tympani was not found to be in the way, and the malleus was seen as well as the incudostapedial joint. The malleus was then palpated, and the incudostapedial joint was then mobile. There was significant scarring in the middle ear attached to the ossicular chain and with Bellucci scissors and a Ferrell needle, taking care and taking significant time, those adhesions were lysed to help improve mobility of the ossicular chain. Palpation was again made, and then, the ossicular chain was seen to be intact and then clearly mobile. Next, the dissection continued with a Ferrell needle to free the malleus from the tympanomeatal flap. After the malleus was free, the tympanomeatal flap was elevated, and then, small pieces of antibiotic-soaked Gelfoam were then placed in the middle ear, and then the temporalis fascia was then cut and used to place underneath the tympanomeatal flap, and then the cartilage was then placed under this as well in order to support the most flexible and flaccid areas of the TM. Small bits of Gelfoam were then used to support that area, and then the tympanomeatal flap was then replaced in position and found to be in good position with a small portion of fascia extending from the tympanomeatal flap into the external ear canal and then laid flat over the wound edge. Gelfoam was then placed to support and hold the area in place, and then, a small amount of bacitracin was then injected into the ear canal, and then bacitracin was then also placed over the two separate wound incisions from the tragal cartilage on the anterior portion of the ear and at the posterior aspect of the ear over the posterior ear incision, and then the patient was then turned back to Anesthesia care for emergence, and the procedure was completed without complication. Job ID: [id number] [facility]ITAL[facility]is[facility]
== END 2020-04-08 13:00 | disposition home or self-care (01) ==
LOC: SDC 06:00
PROVIDERS: ATTEND Student in an Organized Health Care Education/Training Program
PROC: 09U707Z Supplement Right Tympanic Membrane with Autologous Tissue Substitute, Open Approach (ICD-10-PCS; principal; 2020-04-08)
PROC: 09B0XZZ Excision of Right External Ear, External Approach (ICD-10-PCS; 2020-04-08)
DX: H66.91 Otitis media, unspecified, right ear (principal); H72.91 Unspecified perforation of tympanic membrane, right ear; H69.80 Other specified disorders of Eustachian tube, unspecified ear; N40.0 Benign prostatic hyperplasia without lower urinary tract symptoms; I10 Essential (primary) hypertension; Z87.891 Personal history of nicotine dependence; Z79.899 Other long term (current) drug therapy; Z88.6 Allergy status to analgesic agent; Z98.1 Arthrodesis status
CPT/HCPCS: J0171; J0690; J1100; J2250; J2405; J2704; J3010

== ENCOUNTER 2020-08-13 07:57 | Outpatient (CLI) | payer MEDICARE ==
--- NOTE | 2020-08-13 08:41 | RAD ---
CERVICAL SPINE 7 VIEWS: DATE: 08/13/2020. HISTORY: Left arm weakness, prior cervical spine surgery. FINDINGS: Frontal examination demonstrates extensive anterior and posterior fusion hardware. There is atherosc lerotic calcification in the aortic arch. Lateral neutral imaging demonstrates mild anterolisthesis at the C7-T1 level measuring approximately 4 mm. Anterior diskectomy and fusion hardware is present at C3-4. In addition, there is an anterior diskectomy and fusion plate traversing the C4-5, C5-6, and C6-7 levels. Intervertebral disk devices are noted at C3-4, C4-5, C5-6, and C6-7. Extension imaging demonstrates anterolisthesis at C7-T1 measuring approximately 3 mm. On the flexion imaging, the anterolisthesis at C7-T1 is probably slightly increased to 4 mm. No prevertebral soft tissue swelling. Open mouth odontoid imaging demonstrates a normal C1-2 articulation. The dens is o bscured by the patient's teeth. No prevertebral soft tissue swelling. IMPRESSION: Extensive postoperative changes within the cervical spine as above. POS: [facility]
--- NOTE | 2020-08-13 09:02 | CT ---
CT CERVICAL SPINE WITHOUT CONTRAST INDICATIONS: 70-year-old male with history of left arm weakness and history of cervical spinal surgery on April 272018 COMPARISON: CT of the cervical spine dated January 22, 2019 and radiographs of the cervical spine dated July TECHNIQUE: Multiple CT images were obtained of the cervical spine without iv contrast. Axial, coronal, and sagi ttal reformatted images were constructed from the raw data. FINDINGS: Visualized posterior fossa and paravertebral soft tissues: Within normal limits Lung apices: Clear. Spinal alignment: There is stable mild anterior translation of C7 on T1. Spinal instrumentation or postsurgical change: The postsurgical change consistent with an anterior in terbody fusion from C3 through C7 is stable. ACDF plates at C3-4 and C5-C7 are again seen. Intervertebral disc cages at C3-4, C4-5, C5-6 and C6-7 appear unchanged in position. There is osseous incorporation of interbody bone graft from C3 through C7. There is stable articular pillar screws bilaterally from C4 through C7. The inferior most left C7 articular pillar screw does traverse the in ferior articular surface of the left facet. There are laminectomies from C4 through C6. Craniocervical junction and C1-C2: Appears within normal limits. At C2-C3, there is severe right and mild left facet joint degenerative change. There is uncal vertebr al hypertrophy. There is worsening mild right neural foraminal narrowing.. At C3-C4, there is a residual uncovertebral hypertrophy and facet hypertrophy inducing mild bilateral neural foraminal narrowing, stable to the prior. At C4-C5, there is residual uncovertebral hypertrophy and facet hypertrophy inducing moderate right a nd severe left osseous neural foraminal narrowing which appears similar. At C5-C6, there is residual uncovertebral hypertrophy and facet joint degenerative change inducing at least moderate bilateral neural foraminal narrowing which are similar. At C6-C7, there is residual uncovertebral hypertrophy and facet hypertrophy inducing mild bilateral n eural foraminal narrowing, mildly improved from the prior exam. At C7-T1, there is no appreciable osseous central canal or neural foraminal narrowing demonstrated. IMPRESSION: 1. Stable postsurgical change consistent with interbody fusion from C3 through C7. There appears to be solid osseous incorporation of interbody bone graft from C3 through C7. The inferior most left C7 articular pillar screw does traverse the inferior articular surface of the left C7 facet. 2. Multilevel neural foraminal narrowing slightly worse at C2-C3 due to uncovertebral hypertrophy and facet degenerative change. Mild improvement in the neural foraminal narrowing at C6-7. Stable neural foraminal narrowing from C3-4 through C5-6.
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
--- NOTE | 2020-08-13 09:55 | MRI ---
MRI CERVICAL SPINE WITHOUT CONTRAST: Date: 08/13/2020 INDICATION: Neck pain, arm weakness. Comparison made to MRI of cervical spine dated 12/27/2018. FINDINGS: The exam is severely compromised due to patient motion. The axial images are nondiagnostic. There is also significant artifact from fusion hardware. Anterior plate and screws extend from C3 thr ough C7, and there are pedicle screws and rods extending from C4 through C7. This hardware also produ mattie significant artifact. Comparison made to the MRI of cervical spine dated 12/27/[address] of cervical spine dated 2019. The exam was ordered with and without contrast. Due to patient motion and artifact, postcontrast imag es were cancelled. FINDINGS: Review of the sagittal images show mild spondylosis posteriorly at C4-5, C5-6, C6-7, and C7-T1. These changes mildly indent the anterior thecal sac; however, the anterior subarachnoid space is preserved at these levels. The findings are most pronounced at C7-T1 where there does appear to be abutment of the anterior cord. Review of the cord on the sagittal images show thinning of the cord at the C3-C4 level and there is e vidence of increased T2 signal within the cord at this level which appears new from prior exam indica ting focal myelomalacia with cord atrophy. IMPRESSION: 1. Severely degraded study with axial images being nondiagnostic due to artifact as described above. 2. Sagittal images show a focal area of high signal in the cervical cord at C3-4 with cord thinning indicating myelomalacia and associated cord atrophy. This does appear to be a new finding when compar ed to the prior MRI. POS: [facility]
== END 2020-08-13 07:58 | disposition home or self-care (01) ==
LOC: TBSIIMAG 07:57
PROVIDERS: ATTEND Surgery
DX: M54.2 Cervicalgia (principal); R29.898 Other symptoms and signs involving the musculoskeletal system; M48.02 Spinal stenosis, cervical region; M47.812 Spondylosis without myelopathy or radiculopathy, cervical region; S36.118A Other injury of liver, initial encounter; G95.89 Other specified diseases of spinal cord; Z98.890 Other specified postprocedural states
CPT/HCPCS: 71045; 72050; 72125; 72141